=== PATIENT | male | born 1960 | race African-American/Black ===

== ENCOUNTER 2018-05-27 11:35 | Inpatient (IN) | payer OTHER ==
[~2018-05-27] VITALS: Ht 182.9 cm; Wt 136.7 kg
[~2018-05-27 11:35] MED LIST: ACYC-114 PO; AMLO10TA2 PO; Alprazolam PO; BUME1TAB21 PO; CARV12.52 PO; CARV25TA12 PO; CLON1TAB23 PO; DORZ10DR7 RIGHTEYE; FLEC100T PO; FURO-92 PO; GLYB5TAB3 PO; HYDR-3237 PO; HYDR25TA6 PO; INSU100I17 SQ; INSU100V8 SQ; LEVO750T26 PO; LOVA20TA2 PO; METF1000 PO; METF500T5 PO; MOEX15TA2 PO; ONDA4TAB10 PO; POTA10TA5 PO; POTA20TA91 PO; PRAV40TA PO; PRED5DRO15 RIGHTEYE; RIVA20TA PO; TRAM-47 PO
[2018-05-27] MEDS ORDERED: SODIUM CHLORIDE FLUSH 10ML SYR IVF ONE (12:00)
[2018-05-27 12:12] LABS: BASOPHILS # (AUTO) 0.08 x10^3/uL (0-0.1); BASOPHILS % (AUTO) 1 % (0-1); EOSINOPHILS # (AUTO) 0.32 x10^3/uL (0-0.4); EOSINOPHILS % (AUTO) 3 % (1-7); LYMPHOCYTES # (AUTO) 2.98 x10^3/uL (1-3.4); LYMPHOCYTES % (AUTO) 30 % (22-44); MD NO; MEAN CORPUSCULAR HEMOGLOBIN 20.3 pg (27.5-34.5); MEAN CORPUSCULAR HGB CONC 31.4 g/dL (33.2-36.2); MEAN CORPUSCULAR VOLUME 64.6 fL (81-97); MEAN PLATELET VOLUME 7.8 fL (7.4-10.4); MONOCYTES # (AUTO) 0.92 x10^3/uL (0.2-0.8); MONOCYTES % (AUTO) 9 % (2-9); NEUTROPHILS # (AUTO) 5.54 x10^3/uL (1.8-6.8); NEUTROPHILS % (AUTO) 56 % (42-75); PLATELET COUNT 324 x10^3/uL (130-400); RED BLOOD COUNT 6.14 x10^6/uL (4.38-5.82); RED CELL DISTRIBUTION WIDTH 15.8 % (9.4-14.8)
[2018-05-27 12:24] LABS: ALBUMIN 3.3 g/dL (3.4-5.0); ANION GAP 7 mmol/L (5-15); CALCIUM 8.4 mg/dL (8.5-10.1); CHLORIDE 104 mmol/L (98-107); CREATININE 1.34 mg/dL (0.7-1.3)
[2018-05-27 12:33] LABS: INTERNATIONAL NORMALIZED RATIO 1.23 (0.93-1.1); PROTHROMBIN TIME 12.7 Seconds (9.6-11.5)
[2018-05-27] MEDS ORDERED: DOCUSATE 100 MG CAPSULE PO PRN (14:00)
[2018-05-27] MEDS ORDERED: ENOXAPARIN 40 MG/0.4 ML SQ SCH (14:00)
[2018-05-27] MEDS ORDERED: LABETALOL 5MG/ML, 20ML IVPush PRN (14:00)
[2018-05-27] MEDS ORDERED: ONDANSETRON ODT 4 MG PO PRN (14:00)
[2018-05-27] MEDS ORDERED: BISACODYL 10 MG SUPP PR PRN (14:00)
[2018-05-27] MEDS ORDERED: ENALAPRILAT 1.25 MG/ML, 2ML IVPush PRN (14:00)
[2018-05-27] MEDS ORDERED: ACETAMINOPHEN 325 MG TABLET PO PRN (14:00)
[2018-05-27] MEDS ORDERED: ONDANSETRON 2MG/ML, 2ML IVPush PRN (14:00)
[2018-05-27 14:28] LABS: HEMOGLOBIN A1C 8.1 % (4.2-6.3)
[2018-05-27 14:39] VITALS: BP 147/83
[2018-05-27] MEDS ORDERED: GADOBUTROL 15 MMOL/15 ML PFS ONE (14:47)
[2018-05-27] MEDS ORDERED: ENOXAPARIN 40 MG/0.4 ML ONE (14:47)
[2018-05-27] MEDS: SODIUM CHLORIDE 0.9% 1,000 ML IV SCH ×2 (14:50→23:46)
[2018-05-27 16:25] LABS: MICROSCOPIC AUTO
[2018-05-27 16:26] LABS: CULTURE INDICATED? YES
[2018-05-27] MEDS: INSULIN LISPRO 100 UNITS/ML, PEN SQ-INSULIN SCH ×2 (17:07→20:58)
[2018-05-27] MEDS: CARVEDILOL 25 MG TABLET PO SCH (17:38)
[2018-05-27 19:31] VITALS: BP 147/82
[2018-05-27] MEDS: FLECAINIDE 100MG TABLET PO SCH (20:57)
[2018-05-27] MEDS ORDERED: PRAVASTATIN 40 MG TABLET PO SCH (21:00)
[2018-05-27] MEDS ORDERED: RIVAROXABAN 20 MG TABLET PO SCH (21:00)
[2018-05-27] MEDS: MOEXIPRIL HCL 15 MG HOMEMEDPO SCH (21:00)
[2018-05-27] MEDS ORDERED: TEMAZEPAM 15 MG CAPSULE PO PRN (21:30)
[2018-05-28 02:12] VITALS: BP 156/89
[2018-05-28 04:31] LABS: BASOPHILS # (AUTO) 0.08 x10^3/uL (0-0.1); BASOPHILS % (AUTO) 1 % (0-1); EOSINOPHILS # (AUTO) 0.47 x10^3/uL (0-0.4); EOSINOPHILS % (AUTO) 5 % (1-7); LYMPHOCYTES % (AUTO) 27 % (22-44); MD NO; MEAN CORPUSCULAR HEMOGLOBIN 20.4 pg (27.5-34.5); MEAN CORPUSCULAR VOLUME 63.7 fL (81-97); MEAN PLATELET VOLUME 7.8 fL (7.4-10.4); MONOCYTES # (AUTO) 0.97 x10^3/uL (0.2-0.8); MONOCYTES % (AUTO) 10 % (2-9); NEUTROPHILS # (AUTO) 5.43 x10^3/uL (1.8-6.8); NEUTROPHILS % (AUTO) 57 % (42-75); PLATELET COUNT 279 x10^3/uL (130-400); RED BLOOD COUNT 5.95 x10^6/uL (4.38-5.82); RED CELL DISTRIBUTION WIDTH 16.2 % (9.4-14.8)
[2018-05-28 04:43] LABS: ANION GAP 6 mmol/L (5-15); CALCIUM 8.8 mg/dL (8.5-10.1); CHLORIDE 106 mmol/L (98-107); CREATININE 1.01 mg/dL (0.7-1.3)
[2018-05-28 05:07] LABS: CLOSTRIDIUM DIFFICILE ANTIGEN NEGATIVE; CLOSTRIDIUM DIFFICILE TOXIN NEGATIVE (Negative)
[2018-05-28] MEDS: CARVEDILOL 25 MG TABLET PO SCH (05:51)
[2018-05-28 06:48] VITALS: BP 164/89
[2018-05-28] MEDS: INSULIN LISPRO 100 UNITS/ML, PEN SQ-INSULIN SCH ×2 (08:19→11:00)
[2018-05-28] MEDS: MOEXIPRIL HCL 15 MG HOMEMEDPO SCH (08:20)
[2018-05-28] MEDS: FLECAINIDE 100MG TABLET PO SCH (08:21)
[2018-05-28] MEDS ORDERED: AMLODIPINE 5 MG TABLET PO SCH (09:00)
[2018-05-28] MEDS ORDERED: SENNA/DOCUSATE TABLET PO SCH (09:00)
[2018-05-28] MEDS ORDERED: POTASSIUM CHLORIDE 10 MEQ TABLET.ER PO SCH (09:00)
[2018-05-28] MEDS ORDERED: FUROSEMIDE 40 MG TABLET PO SCH (09:00)
[2018-05-29] MEDS ORDERED: predniSOLONE OPHTH. 1%,1ML RIGHTEYE SCH (09:00)
== END 2018-05-28 11:45 | disposition home or self-care (01) | DRG 102 ==
LOC: ED 13:11 → EDIP 13:12 → ED 13:20 → 4WST 14:37 → DCLOUNGE 05-28 11:38
PROVIDERS: ADMIT Internal Medicine; ATTEND Internal Medicine
DX: G43.109 Migraine with aura, not intractable, without status migrainosus (principal); N17.0 Acute kidney failure with tubular necrosis; G45.9 Transient cerebral ischemic attack, unspecified; G46.2 Posterior cerebral artery syndrome; H53.9 Unspecified visual disturbance; E78.5 Hyperlipidemia, unspecified; E86.0 Dehydration; D75.1 Secondary polycythemia; E11.9 Type 2 diabetes mellitus without complications; I48.91 Unspecified atrial fibrillation; I11.9 Hypertensive heart disease without heart failure; Z82.49 Family history of ischemic heart disease and other diseases of the circulatory system; Z83.2 Family history of diseases of the blood and blood-forming organs and certain disorders involving the immune mechanism; Z88.6 Allergy status to analgesic agent; Z90.89 Acquired absence of other organs
CPT/HCPCS: 36415; 70450; 70553; 80048; 81001; 82040; 82962; 83036; 84443; 85025; 85610; 85730; 87086; 87324; 93005; 93306; 93880; 99285; A9585; J1650; J1815; J7030

== ENCOUNTER → 2018-07-11 | Outpatient (CLI) | payer OTHER ==
[~2018-07-11] MED LIST changes: -AMLO10TA2 PO; +AMLO10TA6 PO; +METF500T17 PO; -METF500T5 PO
== END | disposition home or self-care (01) ==
LOC: CVU 12:30
PROVIDERS: ATTEND Internal Medicine Cardiovascular Disease
DX: I51.7 Cardiomegaly (principal); I10 Essential (primary) hypertension; E78.5 Hyperlipidemia, unspecified
CPT/HCPCS: 93306

== ENCOUNTER 2018-08-17 14:22 | Emergency (ER) | payer OTHER ==
[~2018-08-17] VITALS: Ht 182.9 cm; Wt 136.0 kg
[2018-08-17 15:17] VITALS: BP 155/89
== END 2018-08-17 17:25 | disposition home or self-care (01) ==
LOC: ED 17:05
DX: G43.909 Migraine, unspecified, not intractable, without status migrainosus (principal); I10 Essential (primary) hypertension; E11.9 Type 2 diabetes mellitus without complications; E78.00 Pure hypercholesterolemia, unspecified; I48.91 Unspecified atrial fibrillation; Z86.73 Personal history of transient ischemic attack (TIA), and cerebral infarction without residual deficits
CPT/HCPCS: 36415; 70551; 80047; 99285

== ENCOUNTER 2018-10-31 13:17 | Emergency (ER) | payer OTHER ==
[~2018-10-31] VITALS: Ht 182.9 cm; Wt 132.0 kg
[2018-10-31] MEDS ORDERED: SODIUM CHLORIDE FLUSH 10ML SYR IVF ONE (14:00)
--- NOTE | 2018-10-31 14:00 | NUR ---
BREAK RN: THIS IS A 57 YO MALE WHO PRESENTS TO THE ER C/O VISUAL CHANGES THAT ARE NOW RESOLVING AND A MILD JOLLEY. 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 PT ABLE TO ALLISON W/O DIFFICULTY. PT AO X 4. PT ANSWERS ALL QUESTIONS APPROPRIATELY AND FOLLOWS ALL COMMANDS. PT DENIES ANY LOSS OF SENSATION. 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 PT ON XARELTO. PT HAS HX OF AFIB. PT ON CONT BP, CARDIAC AND O2 MONITORS. CALL LIGHT WITHIN REACH.
[2018-10-31 14:11] LABS: MEAN CORPUSCULAR HGB CONC 31.1 g/dL (33.2-36.2); MEAN CORPUSCULAR VOLUME 64.3 fL (81-97); PLATELET COUNT 363 x10^3/uL (130-400); RED BLOOD COUNT 6.12 x10^6/uL (4.38-5.82)
--- NOTE | 2018-10-31 14:11 | NUR ---
PT TO IMAGING VIA [facility] AT THIS TIME.
[2018-10-31 14:12] LABS: ALBUMIN 3.5 g/dL (3.4-5.0); ANION GAP 5 mmol/L (5-15); CALCIUM 8.6 mg/dL (8.5-10.1); CHLORIDE 103 mmol/L (98-107); CREATININE 1.49 mg/dL (0.7-1.3)
[2018-10-31 14:16] LABS: TROPONIN I < 0.015 ng/mL (0.000-0.045)
[2018-10-31 14:26] LABS: INTERNATIONAL NORMALIZED RATIO 1.33 (0.93-1.1)
[2018-10-31 14:27] LABS: PROTHROMBIN TIME 13.9 Seconds (9.6-11.5)
--- NOTE | 2018-10-31 14:31 | NUR ---
PT. IS RESTING AT THIS TIME. NO CONCERNS. VSS. PT. REMAINS MONITORED.
[2018-10-31 14:43] LABS: BASOPHILS # (AUTO) 0.08 x10^3/uL (0-0.1); BASOPHILS % (AUTO) 1 % (0-1); EOSINOPHILS # (AUTO) 0.25 x10^3/uL (0-0.4); EOSINOPHILS % (AUTO) 2 % (1-7); LYMPHOCYTES # (AUTO) 3.42 x10^3/uL (1-3.4); LYMPHOCYTES % (AUTO) 33 % (22-44); MD MORPH REVIEW ONLY; MONOCYTES # (AUTO) 0.78 x10^3/uL (0.2-0.8); MONOCYTES % (AUTO) 8 % (2-9); NEUTROPHILS % (AUTO) 57 % (42-75)
[2018-10-31 14:44] LABS: ANISOCYTOSIS 1+; POLYCHROMASIA 1+
[2018-10-31 14:45] LABS: <PLATELET ESTIMATE> ADEQUATE; <PLT MORPHOLOGY> NORMAL PLT MORPH; OVALOCYTES 1+; SPHEROCYTES 1+
--- NOTE | 2018-10-31 15:46 | NUR ---
PT. WAS GIVEN DISCHARGE INSTRUCTIONS WITH UNDERSTANDING VERBALIZED ALONG WITH WILLINGNESS TO COMPLY. PT.'S IV WAS DCD',CATH TIP INTACT. PRESSURE HELD WITH HEMOSTASIS ACHIEVED. PT. WAS AMBULATORY TO THE DISCHARGE DESK. VSS.
[2018-10-31 15:48] VITALS: BP 145/79
== END 2018-10-31 15:52 | disposition home or self-care (01) ==
LOC: ED 15:46
DX: G45.8 Other transient cerebral ischemic attacks and related syndromes (principal); G46.2 Posterior cerebral artery syndrome; E11.9 Type 2 diabetes mellitus without complications; E78.00 Pure hypercholesterolemia, unspecified; I48.91 Unspecified atrial fibrillation; Z87.01 Personal history of pneumonia (recurrent); Z90.89 Acquired absence of other organs
CPT/HCPCS: 36415; 70450; 71045; 80048; 82040; 84484; 85025; 85610; 85730; 93005; 99284

== ENCOUNTER → 2020-05-12 | Outpatient (CLI) | payer OTHER ==
[~2020-05-12] MED LIST changes: -AMLO10TA6 PO; +AMLO10TA8 PO; +CYCL-259 PO; +DULA0.75 INJ; +INSU100C SQ-INSULIN; +INSU100V5 SQ-INSULIN; +LISI2.5T PO; +TAMS-11 PO; +TOPI25TA8 PO
== END | disposition home or self-care (01) ==
LOC: CFH 15:03
PROVIDERS: ATTEND Optometrist
DX: I65.23 Occlusion and stenosis of bilateral carotid arteries (principal); E11.3291 Type 2 diabetes mellitus with mild nonproliferative diabetic retinopathy without macular edema, right eye; E11.3412 Type 2 diabetes mellitus with severe nonproliferative diabetic retinopathy with macular edema, left eye
CPT/HCPCS: 93880

== ENCOUNTER 2021-02-20 09:36 | Emergency (ER) | payer OTHER ==
[~2021-02-20] VITALS: Ht 182.9 cm; Wt 128.0 kg
[~2021-02-20 09:36] MED LIST changes: -ACYC-114 PO; +ACYC-40 PO; +AMLO-211 PO; -AMLO10TA8 PO; -CYCL-259 PO; +CYCL10TA2 PO
[2021-02-20] MEDS ORDERED: AMLO-211 PO (09:49)
[2021-02-20] MEDS ORDERED: CARV-39 PO (09:49)
[2021-02-20] MEDS ORDERED: ATOR40TA78 PO (09:49)
--- NOTE | 2021-02-20 09:52 | NUR ---
biba home lower abd/bilat flanks. frequency/dysuria since last night. bp high,did not take bp meds last night or this am. 300 mcg fentanyl per ems.benjamin chung at bedside for evaluation. pt attached to monitors. vss. pt w/ 08/07 bladder and back pain. pt attempted to provided ua. only few drops of urine out. pt states he "feels like he has more urine that isn't coming out"
[2021-02-20] MEDS ORDERED: ONDANSETRON 2MG/ML, 2ML ONE (09:58)
[2021-02-20] MEDS ORDERED: MORPHINE SULFATE 4 MG/ML, 1ML ONE ×2 (09:58→11:31)
[2021-02-20] MEDS ORDERED: ONDANSETRON 2MG/ML, 2ML IVPush ONE (10:00)
[2021-02-20] MEDS ORDERED: SODIUM CHLORIDE 0.9% 1,000ML IVBOLUS ONE (10:00)
[2021-02-20] MEDS ORDERED: SODIUM CHLORIDE FLUSH 10ML SYR IVF ONE (10:00)
[2021-02-20] MEDS: MORPHINE SULFATE 4 MG/ML, 1ML IVPush PRN ×2 (10:05→11:32)
--- NOTE | 2021-02-20 10:06 | NUR ---
bladder scan shows >999 ml in bladder. pt to be straight cath
[2021-02-20 10:20] LABS: BASOPHILS % (AUTO) 1 % (0-1); EOSINOPHILS % (AUTO) 2 % (1-7); LYMPHOCYTES % (AUTO) 19 % (22-44); MEAN CORPUSCULAR HEMOGLOBIN 19.9 pg (27.5-34.5); MEAN PLATELET VOLUME 8.6 fL (7.4-10.4); MONOCYTES % (AUTO) 7 % (2-9); NEUTROPHILS % (AUTO) 71 % (42-75); PLATELET COUNT 319 x10^3/uL (130-400); RED CELL DISTRIBUTION WIDTH 16.7 % (9.4-14.8)
--- NOTE | 2021-02-20 10:23 | NUR ---
>1 L urnie from straight cath.
--- NOTE | 2021-02-20 10:25 | NUR ---
dr. lucas to bedside for evaluation. pt to ct.
[2021-02-20 10:27] LABS: ALANINE AMINOTRANSFERASE 21 U/L (12-78); ALBUMIN 3.6 g/dL (3.4-5.0); ANION GAP 6 mmol/L (5-15); CALCIUM 8.7 mg/dL (8.5-10.1); CHLORIDE 105 mmol/L (98-107); CREATININE 0.98 mg/dL (0.7-1.3)
[2021-02-20 10:30] LABS: ALKALINE PHOSPHATASE 63 U/L (45-117); BILIRUBIN,TOTAL 0.7 mg/dL (0.2-1.0); TOTAL PROTEIN 7.6 g/dL (6.4-8.2)
[2021-02-20 10:45] LABS: MD MORPH REVIEW ONLY
[2021-02-20 10:46] LABS: ANISOCYTOSIS 2+; MICROCYTOSIS 2+
[2021-02-20 10:51] LABS: MICROSCOPIC AUTO
[2021-02-20 10:55] LABS: OVALOCYTES 1+; SCHISTOCYTES 1+; TARGET CELLS 1+
[2021-02-20 10:56] LABS: <PLATELET ESTIMATE> ADEQUATE; <PLT MORPHOLOGY> NORMAL PLT MORPH; ACANTHOCYTES 1+; ECHINOCYTES 1+
[2021-02-20] MEDS ORDERED: LIDOCAINE 2%,20 ML JEL.PF.APP MM ONE (11:31)
[2021-02-20 12:19] VITALS: BP 168/79
--- NOTE | 2021-02-20 12:26 | NUR ---
this rn inserted indwelling oh in patient as ordered. afterward this rn gave in depth oh education on changing bags, cleaning, and oh care.
--- NOTE | 2021-02-20 12:40 | NUR ---
Patient/Caregiver given discharge instructions and they have confirmed that they understand the instructions. Patient ambulatory with steady gait.
== END 2021-02-20 12:41 | disposition home or self-care (01) ==
LOC: ED 12:22
DX: N40.1 Benign prostatic hyperplasia with lower urinary tract symptoms (principal); R33.8 Other retention of urine; R10.32 Left lower quadrant pain; E11.9 Type 2 diabetes mellitus without complications; I48.91 Unspecified atrial fibrillation; I11.0 Hypertensive heart disease with heart failure; I50.9 Heart failure, unspecified; E78.00 Pure hypercholesterolemia, unspecified; G43.909 Migraine, unspecified, not intractable, without status migrainosus; E66.01 Morbid (severe) obesity due to excess calories; Z68.38 Body mass index [BMI] 38.0-38.9, adult; Z86.73 Personal history of transient ischemic attack (TIA), and cerebral infarction without residual deficits
CPT/HCPCS: 36415; 51702; 74176; 80053; 81001; 83690; 85025; 93005; 96361; 96374; 96375; 96376; 99285; J2270; J2405; J7030

== ENCOUNTER 2021-02-22 17:25 | Emergency (ER) | payer OTHER ==
[~2021-02-22] VITALS: Ht 182.9 cm; Wt 124.7 kg
[~2021-02-22 17:25] MED LIST changes: +ATOR40TA78 PO; +CARV-39 PO; -LISI2.5T PO; +LISI2.5T12 PO
[2021-02-22 17:39] VITALS: BP 155/74
--- NOTE | 2021-02-22 17:44 | NUR ---
TRIAGE: PATIENT CAME SUNDAY URINARY RETENTION, HAD LEG BAG PLACED. TODAY IT IS FALLING OUT AND HAS URINE LEAKING AROUND. URINE IN BAG IS BLOOD IN URINE.
--- NOTE | 2021-02-22 18:45 | NUR ---
BEDSIDE REPORT RECEIVED FROM SHASHI CALDERON
--- NOTE | 2021-02-22 18:51 | NUR ---
ERP AT BEDSIDE
--- NOTE | 2021-02-22 18:54 | NUR ---
PT REPORTS HE RECENTLY HAD A FRANCIS PLACED DUE TO URINARY RETENTION. PT REPORTS RED TINGED COLOR URINE AND PAIN. PT REPORTS HE IS ON PYRIDUM. PT SEEN BY THE UROLOGIST TODAY. PT SEEN BY DR WALKER. REPORT GIVEN TO KVNG GASTON.
--- NOTE | 2021-02-22 18:57 | NUR ---
PT SITTING UPRIGHT ON CHARLETTE CAMARENA, VSS. PT DENIES ANY NEEDS AT THIS TIME. CALL LIGHT AND BELONGINGS WITHIN REACH. WILL CONTINUE TO MONITOR.
--- NOTE | 2021-02-22 19:31 | NUR ---
Patient given discharge instructions and they have confirmed that they understand the instructions. Patient ambulatory with steady gait.
== END 2021-02-22 19:32 | disposition home or self-care (01) ==
LOC: ED 19:26
DX: N40.1 Benign prostatic hyperplasia with lower urinary tract symptoms (principal); R31.9 Hematuria, unspecified; I11.0 Hypertensive heart disease with heart failure; I50.9 Heart failure, unspecified; E11.9 Type 2 diabetes mellitus without complications; I48.91 Unspecified atrial fibrillation; E78.00 Pure hypercholesterolemia, unspecified; R33.8 Other retention of urine; G43.909 Migraine, unspecified, not intractable, without status migrainosus; Z90.89 Acquired absence of other organs; Z86.73 Personal history of transient ischemic attack (TIA), and cerebral infarction without residual deficits
CPT/HCPCS: 99281; 99282

== ENCOUNTER 2021-06-06 17:05 | Emergency (ER) | payer OTHER ==
[~2021-06-06] VITALS: Ht 185.4 cm; Wt 100.0 kg
[~2021-06-06 17:05] MED LIST changes: +LISI2.5T PO; -LISI2.5T12 PO
--- NOTE | 2021-06-06 17:11 | NUR ---
Neg neuro deficits at triage
--- NOTE | 2021-06-06 17:15 | NUR ---
BG 259 triage
[2021-06-06] MEDS ORDERED: SODIUM CHLORIDE FLUSH 10ML SYR IVF ONE ×2 (17:30→18:30)
--- NOTE | 2021-06-06 18:17 | NUR ---
Dizzy, disoriented, off balance reports feeling like his speech is slurring reports sx x 1 week. SYMPTOMS ONLY WITH EXERTION/STANDING HAD URO LIFT 7 DAYS AGO/started on azo. ALSO UNDER EXTREME STRESS- DAUGHTER SUDDENLY PASSED RECENTLY FSBS 259, ECG ONTAINED, PLACED ON COMPUTER TYPESETTER KEYLINER
[2021-06-06 18:19] VITALS: BP 188/77
--- NOTE | 2021-06-06 18:20 | NUR ---
to ct (head w/o)
[2021-06-06 18:25] LABS: BASOPHILS % (AUTO) 1 % (0-1); EOSINOPHILS % (AUTO) 2 % (1-7); LYMPHOCYTES % (AUTO) 32 % (22-44); MEAN CORPUSCULAR HEMOGLOBIN 19.5 pg (27.5-34.5); MEAN CORPUSCULAR HGB CONC 31.9 g/dL (33.2-36.2); MEAN PLATELET VOLUME 7.3 fL (7.4-10.4); MONOCYTES % (AUTO) 8 % (2-9); NEUTROPHILS % (AUTO) 57 % (42-75); PLATELET COUNT 322 x10^3/uL (130-400); RED BLOOD COUNT 5.71 x10^6/uL (4.38-5.82); RED CELL DISTRIBUTION WIDTH 16.2 % (9.4-14.8)
[2021-06-06 18:27] LABS: ALANINE AMINOTRANSFERASE 28 U/L (12-78); ALBUMIN 3.2 g/dL (3.4-5.0); ANION GAP 7 mmol/L (5-15); CALCIUM 8.9 mg/dL (8.5-10.1); CHLORIDE 102 mmol/L (98-107); CREATININE 1.42 mg/dL (0.7-1.3)
[2021-06-06] MEDS ORDERED: SODIUM CHLORIDE 0.9% 1,000ML IVBOLUS ONE (18:30)
[2021-06-06 18:31] LABS: ALKALINE PHOSPHATASE 79 U/L (45-117); BILIRUBIN,TOTAL 0.4 mg/dL (0.2-1.0); TOTAL PROTEIN 7.2 g/dL (6.4-8.2); TROPONIN I < 0.015 ng/mL (0.000-0.045)
[2021-06-06 19:00] LABS: MICROSCOPIC AUTO
--- NOTE | 2021-06-06 19:09 | NUR ---
Report from Demian CALDERON
--- NOTE | 2021-06-06 19:10 | NUR ---
report to melissa CALDERON
[2021-06-06] MEDS ORDERED: PHEN-582 PO (19:18)
[2021-06-06 19:42] LABS: ACETONE, SERUM Negative (Negative)
== END 2021-06-06 20:35 | disposition home or self-care (01) ==
LOC: ED 20:25
DX: E86.0 Dehydration (principal); R42 Dizziness and giddiness; E86.9 Volume depletion, unspecified; R06.02 Shortness of breath; I11.0 Hypertensive heart disease with heart failure; I50.9 Heart failure, unspecified; E11.9 Type 2 diabetes mellitus without complications; I48.91 Unspecified atrial fibrillation
CPT/HCPCS: 36415; 70450; 71045; 80053; 81001; 82010; 82962; 84484; 85025; 87086; 93005; 96360; 99285; J7030